=== PATIENT | female | born 1975 | race Native Hawaiian/Other Pacific Islander ===

== ENCOUNTER 2017-04-03 07:44 | Emergency (ER) | payer SELFPAY ==
[~2017-04-03] VITALS: Ht 160 cm; Wt 71.4 kg
[2017-04-03 07:46] VITALS: BP 107/58; TEMP 99.2
[2017-04-03 08:41] LABS: INFLUENZA A NEGATIVE; INFLUENZA B NEGATIVE
[2017-04-03 08:57] LABS: BASO % 0.5 % (0.0-2.0); GRAN # 5.4 (1.4-6.5); GRAN % 84.8 % (42.2-75.2); HEMATOCRIT 39.8 % (37.0-47.0); HEMOGLOBIN 13.6 g/dl (12.5-16.0); LYMPH # 0.4 (1.2-3.4); MEAN CELL VOLUME 89 fl (80.0-100.0); MEAN CORPUSCULAR HEMOGLOBIN 31 pg (27.0-31.0); MEAN CORPUSCULAR HGB CONC 34 g/dl (33.0-37.0); MEAN PLATELET VOLUME 8.9 fl (7.4-10.4); MONO # 0.5 (0.1-0.6); MONO % 8.2 % (1.7-9.3); PLATELET COUNT 216 K/mm3 (130-400); RED BLOOD COUNT 4.45 M/mm3 (4.10-5.30); WHITE BLOOD COUNT 6.3 K/mm3 (4.8-10.8)
[2017-04-03 09:05] LABS: ADJUSTED CALCIUM 8.9 mg/dL (8.4-10.2); ALBUMIN 3.9 gm/dL (3.5-5.0); BILIRUBIN,TOTAL 0.7 mg/dL (0.0-1.0); CALCIUM 8.8 mg/dL (8.4-10.2); CREATININE, serum 0.66 mg/dL (0.52-1.25); POTASSIUM 3.3 mmol/L (3.4-5.0)
[2017-04-03 09:46] LABS: COLLECTION METHOD CLEAN CATCH
[2017-04-03 09:57] LABS: PH 6 (5-8); SQUAMOUS EPITHELIAL 0-2 /hpf; URINE APPEARANCE Clear; URINE BACTERIA None Seen /hpf; URINE BILIRUBIN Negative (NEGATIVE); URINE BLOOD 2+ (NEGATIVE); URINE COLOR Straw; URINE GLUCOSE Negative (NEGATIVE); URINE KETONE Negative (NEGATIVE); URINE LEUKOCYTE ESTERASE Negative (NEGATIVE); URINE PROTEIN(semi-quant) Negative (NEGATIVE); URINE RBC 0-2 /hpf; URINE UROBILINOGEN Negative (NEGATIVE); URINE WBC 0-2 /hpf
[2017-04-03] MEDS ORDERED: TAMIFLU 75MG75 MG PO (10:47)
[2017-04-03] MEDS ORDERED: PHENERGAN 25 TA25 MG PO (10:47)
[2017-04-03 11:38] VITALS: PULSE 84
== END 2017-04-03 11:39 | disposition home or self-care (01) ==
LOC: COL.ER 07:44
PROVIDERS: Emergency Medicine
DX: J11.1 Influenza due to unidentified influenza virus with other respiratory manifestations (principal); Z87.19 Personal history of other diseases of the digestive system
CPT/HCPCS: J1885; J2405; J7030

== ENCOUNTER 2018-08-25 09:30 | Observation (INO) | payer OTHER ==
[2018-08-25] VITALS (10 sets, daily range): BP systolic 83–113; BP diastolic 42–76; PULSE 62–92; TEMP 97.8–99.2
[~2018-08-25] VITALS: Ht 160 cm; Wt 81.4 kg
[~2018-08-25 09:30] MED LIST: PHENERGAN 25 TA25 MG PO; TAMIFLU 75MG75 MG PO
[2018-08-25 10:30] LABS: BASO % 0.2 % (0.0-2.0); GRAN # 8.3 (1.4-6.5); HEMATOCRIT 43.1 % (37.0-47.0); HEMOGLOBIN 14.8 g/dl (12.5-16.0); LYMPH # 1.4 (1.2-3.4); LYMPH % 13.6 % (20.0-51.0); MEAN CELL VOLUME 86 fl (80.0-100.0); MEAN CORPUSCULAR HEMOGLOBIN 30 pg (27.0-31.0); MEAN CORPUSCULAR HGB CONC 34 g/dl (33.0-37.0); MEAN PLATELET VOLUME 9.1 fl (7.4-10.4); MONO # 0.5 (0.1-0.6); MONO % 4.9 % (1.7-9.3); PLATELET COUNT 306 K/mm3 (130-400)
[2018-08-25 11:22] LABS: ALBUMIN 3.5 gm/dL (3.5-5.0); BILIRUBIN,TOTAL 0.5 mg/dL (0.0-1.0); C-REACTIVE PROTEIN 2.3 mg/dL (0.0-0.9); CALCIUM 8.3 mg/dL (8.4-10.2); CREATININE, serum 0.46 (0.52-1.25); POTASSIUM 3.6 mmol/L (3.4-5.0); TOTAL PROTEIN 6.6 gm/dL (6.4-8.2)
[2018-08-25] MEDS ORDERED: PERCOCET 325 MG1 TA2 PO (15:35)
[2018-08-25] MEDS ORDERED: FLAGYL500 MG PO (15:35)
[2018-08-25] MEDS ORDERED: MOTRIN 600600 MG/TAB PO (15:35)
[2018-08-25] MEDS ORDERED: COLACE 100100 MG/CAP PO (15:35)
[2018-08-25] MEDS ORDERED: CIPRO 500MG TA500 MG PO (15:35)
--- NOTE | 2018-08-25 16:30 | NUR ---
Patient has been drowsy since getting back to the floor. Stated having a little nausea but not that bad. Offered her zofran for nausea but she wanted to wait. She is worried she is gettng too many medications and that it is making her sick. Oriented patient to room. Explained that she can just rest for now and after she is feeling better we can her get up and she can try to eat or drink. Call light within reach. Will continue to monitor.
--- NOTE | 2018-08-25 18:30 | NUR ---
Patient is doing better. She had some jello and water. She stated her nausea is better but she still feels very tired. Patient stated her pain is still there but did not want pain medications at this time. Her Family is at bedside. Gave her prescriptions to her so he could work on getting them filled tomorrow befoer she goes home. No other changes at this time. Call light within reach.
--- NOTE | 2018-08-25 20:00 | NUR ---
REPORT RECEIVED. ASSUMED CARE FOR QUALITY LIAISON. ASSESSMENT COMPLETE. VS HAVE BEEN STABLE. DENIES PAIN AT THIS TIME. STILL VERY DROWSY BUT ANSWERS QUESTIONS APPROPRIATELY. LAP SITES X4-EDGES WELL APPROXIMATED-NO DRAINAGE NOTED. UP TO BATHROOM FOR FIRST VOID. AMBULATED WELL. VOIDED WITHOUT DIFFICULTY. TOLERATING CLEAR LIQUIDS WITHOUT N/V. DISCUSSED AMBULATING MORE THIS SHIFT. VERBALIZES UNDERSTANDING. WILL OSMANI.
--- NOTE | 2018-08-25 22:10 | NUR ---
C/O ABDOMINAL PAIN/BACK PAIN/RIGHT SHOULDER PAIN. DESCRIBED ACHE WITH SOME SHARPNESS. ALSO C/O NAUSEA. TEACHING DONE ON GAS PAIN AND AMBULATION. HAS BEEN UP OUT OF BED X2 SO FAR. MEDICATED WITH IV DILAUDID AND ZOFRAN. PLAN DISCUSSED TO AMBULATE MORE LATER THIS SHIFT. VERBALIZES UNDERSTANDING. WILL MONITOR.
[2018-08-26 04:10] VITALS: BP 95/54; PULSE 66; TEMP 98.1
[2018-08-26 08:33] VITALS: BP 99/61; PULSE 69; TEMP 98.6
--- NOTE | 2018-08-26 09:00 | NUR ---
Patient was having increased pain but she has not had any pain medications in a while. Percocet given for pain. Patient stated it is working well. She denies nausea. She has ordered breakfast and is eating slowly. No other changes at this time. She is hoping to discharge home soon. Explained that we will be waiting for Dr Hoang. Family at bedside.
[2018-08-26] MEDS ORDERED: Work release (11:47)
[2018-08-26 11:49] VITALS: BP 124/65; PULSE 65; TEMP 98.2
--- NOTE | 2018-08-26 12:20 | NUR ---
Patient is discharging home. Discharge instructions discussed with patient. No questions verbalized. INT discontinued. Explained to call Monday for a 2 week follow up appointment. Patient has prescriptions to get filled and she knows they need to be filled today. Explained when her antibiotics are due to take today. Copies of discharge instructions sent with patient. All belongings packed up and sent with patient. Patient walked out via wheel chair.
--- NOTE | 2018-08-26 12:21 | NUR ---
Patient lives at home with her (Simeon) and their children in [place], [place] and plans to return home upon discharge. Patient is independent with daily living activites and works as a Contract Consultant at [employer]. Patient does not have a primary care physician or advance directives of healthcare completed at this time, and her pharmacy is [facility]. No further needs at this time and patient plans to discharge home later this day.
== END 2018-08-26 12:20 | disposition home or self-care (01) ==
LOC: COL.ER 09:30 → SURG 12:39
PROVIDERS: Emergency Medicine; Physician Assistant; ADMIT Surgery
DX: K80.10 Calculus of gallbladder with chronic cholecystitis without obstruction (principal); Z87.891 Personal history of nicotine dependence; Z80.3 Family history of malignant neoplasm of breast; Z80.43 Family history of malignant neoplasm of testis
CPT/HCPCS: G0378; J0690; J0744; J1100; J1170; J1885; J2250; J2405; J2704; J3010; J7030; J7120; Q9967

== ENCOUNTER → 2020-03-11 | Outpatient (CLI) | payer OTHER ==
[~2020-03-11] MED LIST changes: +CIPRO 500MG TA500 MG PO; +COLACE 100100 MG/CAP PO; +FLAGYL500 MG PO; +MOTRIN 600600 MG/TAB PO; +PERCOCET 325 MG1 TA2 PO; +Work release
== END ==
LOC: MC.RAD 08:00
DX: N60.12 Diffuse cystic mastopathy of left breast (principal); N60.11 Diffuse cystic mastopathy of right breast; Z80.3 Family history of malignant neoplasm of breast